=== PATIENT | female | born 1990 ===

== ENCOUNTER 2025-04-21 08:00 | Day surgery (SDC) | payer OTHER ==
[2025-04-14 10:47] LABS: BASO % 0.8 % (0.1-1.2); EOS # 0.20 (0.04-0.54); EOS % 2.5 % (0.7-7.0); LYMPH # 2.24 (1.18-3.74); LYMPH % 28.4 % (19.3-53.1); MEAN PLATELET VOLUME 9.70 fl (9.4-12.4); MONO # 0.54 (0.24-0.82); MONO % 6.8 % (4.7-12.5); NEUT # 4.83 (1.56-6.13); NEUT % 61.2 % (34.0-71.1); RED CELL DISTRIBUTION WIDTH 12.6 % (11.6-14.4)
[2025-04-14 10:48] LABS: URINE APPEARANCE Clear; URINE BILIRRUBIN Negative (NEGATIVE); URINE BLOOD Small; URINE COLOR Yellow; URINE GLUCOSE Negative (NEGATIVE); URINE KETONE Negative (NEGATIVE); URINE LEUKOCYTE Negative; URINE NITRATE Negative; URINE PROTEIN Negative (NEGATIVE); URINE UROBILINOGEN 0.2 E.U./dl
[2025-04-14 10:50] LABS: URINE BACTERIA 1529.8 uL (0.0-1933); URINE EPITHELIAL CELLS 37.3 uL (0.0-38.8); URINE RBC 15.5 uL (0.0-20.8); URINE WBC 12.9 uL (0.0-23.2)
[2025-04-14 11:12] LABS: URINE CAST 0.00 uL (0.0-1.40)
[2025-04-14 11:25] LABS: INR 0.98
[2025-04-14 11:40] LABS: ALT/SGPT 40.0 U/L (12-78); AST/SGOT 20.0 U/L (15-37); BILIRUBIN TOTAL 0.35 mg/dL (0.3-1.2); BUN CREA RATIO 25.0 (7.0-25.0); CREATININE SERUM 0.44 mg/dL (0.55-1.02); GFR 164.68; GLOBULINA 3.7 G/DL (2.4-3.5); GLUCOSE FASTING 95.0 mg/dL (65-100); OSMOLALITY SERUM 277.0 MOSM/KG (275-295); TSH 1.14 uIU/mL (0.358-3.74)
[2025-04-21] MEDS ORDERED: CEFOXITIN SODIUM 2,000 MG VIAL IV ONE (08:34)
[2025-04-21] MEDS ORDERED: POVIDONE-IODINE 118 ML BOTT TOP ONE (10:11)
[2025-04-21] MEDS ORDERED: PROMETHAZINE HCL 50 MG/ML AMPUL IM ONE (11:00)
[2025-04-21] MEDS ORDERED: NAPR500T14 PO (11:04)
[2025-04-21] MEDS ORDERED: Tylenol #3 PO (11:04)
[2025-04-21] MEDS ORDERED: DOXYCYCLINE HY100 M3 PO (14:47)
== END 2025-04-21 15:20 | disposition home or self-care (01) ==
LOC: CIR.AMB 08:00
PROVIDERS: ATTEND Obstetrics & Gynecology
DX: D25.0 Submucous leiomyoma of uterus (principal); N84.0 Polyp of corpus uteri